=== PATIENT | male | born 1990 | race African-American/Black ===

== ENCOUNTER 2021-04-22 10:21 | Emergency (ER) | payer OTHER, SELFPAY ==
[2021-04-22 10:33] VITALS: BP 193/117; PULSE 91; RESP 16; TEMP 36.4; O2SAT 91
--- NOTE | 2021-04-22 10:58 | ED.SKABFB ---
HPI - Skin/Abscess/Foreign Bdy General Chief complaint: Skin/Abscess/Foreign Body Stated complaint: Rash Time Seen by Provider: 04/22/21 10:58 Source: patient and RN notes reviewed Mode of arrival: ambulatory Limitations: no limitations History of Present Illness HPI narrative: 30-year-old male who presents to [facility] with complaints of draining abscess to lower abdomen. Patient reports that he noticed a swollen tender area to his lower abdomen last evening and this morning while dressing the area opened and started draining yellowish red liquid. Patient reports that he has had various skin lesions previously that came on different places before and they would drain and then heal. 2cm X1cm raised tender tissue area to lower abdomen noted which is painful to touch with large amount of purulent bloody drainage noted.Patient denies any fevers, chills or sweats. Patient reports that he has been cleansing area with soap and water and peroxide, states he applied band-aide to site this morning after it started to drain. MD complaint: abscess/boil Onset (ago): day(s) Quality: aching Pain Consistency: constant Treatments prior to arrival: other (cleansed with warm compresses) Related Data Allergies Allergy/AdvReac Type Severity Reaction Status Date / Time No Known Allergies Allergy Unverified 04/22/21 10:34 Review of Systems Review of Systems: CONSTITUTIONAL: Denies fever, chills, or sweats. EYES: Denies visual changes, redness, or discharge. ENT: Denies rhinorrhea, congestion, sore throat, or otalgia. CARDIOVASCULAR: Denies chest pain, palpitations, or edema. RESPIRATORY: Denies cough or dyspnea. GASTROINTESTINAL: Denies abdominal pain, nausea, vomiting, or diarrhea. GENITOURINARY: Denies dysuria or hematuria. SKIN :Draining abscess to lower abdomen MUSCULOSKELETAL: Denies back pain, joint pain, or myalgia. NEUROLOGIC: Denies headache, numbness, or weakness. PSYCHIATRIC: Denies anxiety or depression. All systems reviewed & are unremarkable except as noted in HPI and below PMFSH Past Medical History Medical History (Updated 04/22/21 @ 14:09 by Amairani Nolan NP) Skin abscess Tonsillar abscess Surgical History Surgical History (Updated 04/22/21 @ 14:10 by Amairani Nolan NP) No history of previous surgery Family History Family History (Updated 04/22/21 @ 14:10 by Amairani Nolan NP) Mother Hypertension Grandparent Cerebrovascular accident Cancer Social History Social History (Updated 04/22/21 @ 14:27 by Amairani Nolan NP) Smoking status: Current every day smoker Tobacco type: cigars Additional smoking assessment comments: 1 cigar daily Alcohol intake: current Alcohol use details: social Substance use: current Substance use type: marijuana Last use: social use Living arrangements: with family Gender identity (if verbalized by the patient): Male Comments At time of signature, agree with nursing past medical, surgical, social and family history. There is no relevant family history pertinent to the presenting complaint Exam Narrative: GENERAL: Well-appearing, well-nourished, and in no acute distress. HEAD: Normocephalic, atraumatic. EYES: PERRLA and EOMI. ENT: Nares clear, no rhinorrhea or epistaxis. Mucous membranes moist.TM's normal with good light reflex, throat pink with no lesions or exudates, no tonsil swelling. NECK: Supple.no lymphadenopathy CHEST: Clear to auscultation. No respiratory distress.SAO2 91% on room air. HEART: Regular rate and rhythm. No murmur heard. Normal peripheral pulses. ABDOMEN: Soft, nontender, nondistended, normal active bowel sounds. EXTREMITIES: Normal range of motion. No edema. SKIN: Warm, [id number] raised abscess to skin lower abdomen which is tender to palpation,no acute redness of skin but draining large amount of yellowish red drainage, patient has no fevers,chills or sweat NEURO: No focal deficits. Alert and oriented x3. Course Course
[2021-04-22 11:24] VITALS: BP 201/117
== END 2021-04-22 11:24 | disposition home or self-care (01) ==
PROVIDERS: Emergency Provider Registered Nurse
DX: L02.211 Cutaneous abscess of abdominal wall (principal); F17.290 Nicotine dependence, other tobacco product, uncomplicated
CPT/HCPCS: 87070; 87075; 87076; 87205; 99203; G0463